=== PATIENT | male | born 1945 | race Caucasian/White ===

== ENCOUNTER 2017-12-13 19:50 | Inpatient (IN) ==
[2017-12-13] MEDS ORDERED: cefTRIAXone 1,000 MG in Water for inj. (sterile) 20 ML 10 ML IVP ONE (20:06)
[2017-12-13] MEDS ORDERED: Azithromycin 500 MG in D5% in Water 250 ML IVPB ONE (20:06)
--- NOTE | 2017-12-13 20:12 | Emergency Department Note ---
Disposition Clinical Impression: Hypokalemia Pneumonia Qualifiers: Pneumonia type: due to unspecified organism Laterality: right Lung location: lower lobe of lung Qualified Code(s): J18.1 - Lobar pneumonia, unspecified organism Disposition: Home, Self-Care Condition: Fair Forms: ED Satisfaction Letter Time of Disposition: 22:42 SOB HPI - General Chief Complaint: ED Extremity Injury, Upper Stated Complaint: left shoulder and arm pain Time Seen by Provider: 12/13/17 19:59 Source: patient, EMS Mode of arrival: EMS Limitations: physical limitation Nursing Notes Reviewed: Yes Vital Signs Reviewed: Yes - History of Present Illness Pt Subjective Complaint: shortness of breath Onset (ago): day(s) (4 days) Context: other (Says been feeling weak for the past 4-5 days. Weakness associated be her he is having hard time getting out of a chair and moving around. He said shortness of breath and cough during that time. Cough is productive of white sputum.) Severity: severe Consistency/Duration: gradually worsening Improves with: nothing Worsens with: exertion, coughing Known history of: COPD Associated symptoms: Reports: fever, sputum production Treatment prior to arrival: oxygen Cough present: Yes Cough Description: Productive Cough Frequency: Intermittent Sputum production: Yes Sputum Amount: Large Sputum Color: White - Related Data Home oxygen amount: 2 liters Home Medications Medication Instructions Recorded Confirmed Albuterol Sulfate [Ventolin Hfa] 1 IH QID 08/26/17 Aspirin [Lo-Dose Aspirin EC] 81 mg PO DAILY 08/26/17 12/13/17 Atorvastatin Calcium [Lipitor] 40 mg PO DAILY 08/26/17 12/13/17 Diclofenac Sodium [Voltaren] 1 PO BID 08/26/17 Fluticasone Propionate [Flovent 50 mcg IH DAILY 08/26/17 12/13/17 Diskus] Gabapentin [Neurontin] 400 mg PO TID 08/26/17 12/13/17 Lisinopril [Zestril] 10 mg PO DAILY 08/26/17 12/13/17 Magnesium Oxide [Magnesium] 400 mg PO BID 08/26/17 12/13/17 Melatonin 10 mg PO DAILY 08/26/17 12/13/17 Meloxicam [Meloxicam] 1 tab PO DAILY 08/26/17 12/13/17 Metoprolol Tartrate [Metoprolol 25 mg PO BID 08/26/17 12/13/17 Tartrate] Potassium Chloride 10 meq PO DAILY 08/26/17 12/13/17 Quetiapine Fumarate [SEROquel] 25 mg PO HS 08/26/17 12/13/17 Previous Rx's Medication Instructions Recorded HYDROcodone/Acet 5/325 mg [[place] 1 tab PO Q6H #14 tab 11/19/16 5-325 mg] Allergies Allergy/AdvReac Type Severity Reaction Status Date / Time No Known Allergies Allergy Verified 08/26/17 15:28 All systems ED: reviewed and negative except as stated. Constitutional: Reports: fever, chills ENT ED: Denies: ear pain, throat pain, congestion Cardiovascular: Reports: dyspnea on exertion. Denies: chest pain, palpitations Respiratory: Reports: cough, dyspnea, wheezes, sputum production Gastrointestinal: Reports: abdominal pain (But this is chronic and no different than usual). Denies: nausea, vomiting, diarrhea Genitourinary: Denies: urgency, dysuria Musculoskeletal: Denies: back pain Integumentary: Denies: rash Neurological: Reports: weakness (Generalized weakness). Denies: headache Endocrine: Reports: fatigue Past Medical History - Past Medical History Attestation: Yes The following information was validated with the patient. Source: patient, old records reviewed, nursing notes reviewed Medical history: Reports: arthritis, COPD, hypertension Surgical history: Reports: no surgical history Psychiatric history: Reports: anxiety - Social History Smoking Status: Former smoker Smokeless Tobacco Status: Yes Alcohol use: Reports: heavy, recent Drug use: Reports: marijuana Physical Exam - General Limitations: physical limitation General appearance: alert, in no apparent distress - Head Head exam: atraumatic, normocephalic, normal inspection - Eye Eye exam: Present: normal appearance, PERRL, EOMI. Absent: scleral icterus, conjunctival injection - ENT ENT exam: normal exam, normal oropharynx, mucous membranes dry, normal external ear exam - Neck Neck exam: Present: normal inspection, full ROM, trachea midline. Absent: meningismus, lymphadenopathy - Chest Chest inspection: Present: normal inspection, symmetric chest wall rise. Absent : tenderness - Respiratory Respiratory exam: Present: other (Course breath sounds are heard on the right lung. Left lung sounds clear). Absent: respiratory distress - Cardiovascular Cardiovascular exam: Present: normal rhythm, tachycardia, normal heart sounds - Abdominal Exam Abdominal exam: Present: soft, Non-Tender (When I palpated with my hand lightly the patient called out in discomfort and asked me not to press so hard. I then went ahead and listen with my stethoscope while doing so pressed very hard with my stethoscope head and the patient did not complain of discomfort or flinch in any way. Belly was very soft), normal bowel sounds - Extremities Exam Extremities exam: Present: normal inspection. Absent: pedal edema - Neurological Exam Neurological exam: Present: alert, oriented X3. Absent: motor sensory deficit ( No focal motor or sensory deficit. Patient does have generalized weakness) - Psychiatric Psychiatric exam: Present: normal affect, normal mood - Skin Skin exam: Present: warm, dry. Absent: rash Course Course Narrative: Patient has generalized weakness severe enough it is really not able to get up and walk around at home. He is coughing and producing white sputum and he is short of breath. On auscultation there is a lot of noise in the right lung. He has a fever as well. I am concerned about pneumonia. I initiated a sepsis workup. I ordered blood cultures and we will initiate a long source antibiotics. Disposition will be based on diagnostic results and reevaluation. - Reevaluation(s) Reevaluation #1: I reevaluated the patient several times but does not. She has to dictate. Patient's x-ray shows right-sided pneumonia. That is consistent with the lung exam findings combined with his general complaint and fever. I am also learning that the patient really has some drug use issues. EMS took a picture of a bunch of drugs a lobito had on his dresser at home. That may be contributing to his weakness and somnolence as well. He is already gotten the pneumonia antibiotics. Labs do not look that bad. Cardiac spoke with the hospitalist to get him admitted to the hospital for treatment of pneumonia. Time: 22:40 - Consultations Consultation #1: Dr. Kulkarni, hospitalist - I discussed case with the hospitalist and he is accepted the patient for admission. Time: 22:35 Vital Signs Temperature 100.1 F H 12/13/17 19:57 Pulse Rate 112 12/13/17 19:57 Respiratory Rate 18 12/13/17 19:57 Blood Pressure 140/94 12/13/17 19:57 O2 Sat by Pulse Oximetry 95 12/13/17 19:57 Temperature 99.0 F 12/13/17 21:57 Pulse Rate 83 12/13/17 22:32 Respiratory Rate 16 12/13/17 22:32 Blood Pressure 126/89 12/13/17 22:32 O2 Sat by Pulse Oximetry 97 12/13/17 22:32 Oxygen Delivery Oxygen Delivery Nasal Cannula Shortness of Breath/Dyspnea - Medical Records Medical records reviewed: Yes I reviewed the patient's medical records. - Lab Data Lab results reviewed: Yes I reviewed the patient's lab results. Result diagrams: 12/13/17 20:22 12/13/17 20:22 Lab Results 12/13/17 12/13/17 12/13/17 Range/Units 20:22 20:22 20:22 WBC 9.5 (4.3-11.1) K/mcL RBC 4.25 (4.19-5.50) M/mcL Hgb 12.7 L (12.9-16.9) g/dL Hct 37.1 L (37.5-50.1) % MCV 87.3 (83.0-100.0) fL MCH 29.9 (28.0-33.3) pg MCHC 34.2 (31.6-35.5) g/dL RDW 13.6 (11.5-14.5) % Plt Count 124 L (140-400) K/mcL MPV 9.9 (9.4-12.4) fL Immature Gran % 0.2 (0-4) % Seg Neutrophils % 79.6 % Lymphocytes % 7.9 % Monocytes % 12.1 % Eosinophils % 0.0 % Basophils % 0.2 % Neutrophils # 7.5 (1.6-8.9) K/mcL Lymphocytes # 0.8 (0.6-4.6) K/mcL Monocytes # 1.1 (0.0-1.3) K/mcL Eosinophils # 0.0 (0.0-0.6) K/mcL Basophils # 0.0 (0.0-0.2) K/mcL PT 15.3 H (9.4-12.1) Seconds INR 1.4 APTT 39.1 H (26.0-36.0) Seconds Sample Site ABG pH (7.32-7.45) pH Units ABG pCO2 (35-45) mmHg ABG pO2 (85-104) mmHg ABG HCO3 (21-27) mEq/L ABG Total CO2 (20-26) mEq/L ABG O2 Saturation (95-98) % ABG Base Excess (-2 to 3) mEq/L Jerry Test O2 Delivery Device Inspired O2 (1-15=lpm qy95-232=%) Sodium 134 L (136-145) mEq/L Potassium 3.0 L (3.5-5.1) mEq/L Chloride 101 (98-107) mEq/L Carbon Dioxide 24 (23-29) mEq/L BUN 13 (8-23) mg/dL Creatinine 0.67 L (0.70-1.30) mg/dL Est GFR ( Amer) > 60 (> 60) Est GFR (Non-Af Amer) > 60 (> 60) BUN/Creatinine Ratio 19 (6-26) Glucose 140 H (70-105) mg/dL Calculated Osmolality 280 (280-300) Lactic Acid (0.5-2.2) mmol/L Calcium 8.8 (8.6-10.3) mg/dL Phosphorus 2.4 L (2.7-4.5) mg/dL Magnesium 1.4 L (1.6-2.6) mg/dL Total Bilirubin 1.3 H (0.3-1.0) mg/dL Direct Bilirubin 0.3 H (0.0-0.2) mg/dL Indirect Bilirubin 1.0 (0.0-1.2) mg/dL AST 17 (13-39) Units/L ALT 16 (7-52) Units/L Alkaline Phosphatase 77 (34-104) Units/L Troponin I < 0.03 (< 0.04) ng/mL Serum Total Protein 7.3 (6.4-8.9) g/dL Albumin 3.5 (3.5-5.7) g/dL Globulin 3.8 H (2.4-3.5) g/dL Albumin/Globulin Ratio 0.9 L (1.1-2.2) Urine Color (Yellow) Urine Clarity (Clear) Urine pH (5.0-8.0) pH Units Ur Specific [place] (1.010-1.025) Urine Protein (Neg-Trace) mg/dL Urine Glucose (UA) (Normal) mg/dL Urine Ketones (Negative) mg/dL Urine Blood (Negative) Urine Nitrite (Negative) Urine Bilirubin (Negative) Urine Urobilinogen (Normal) mg/dL Ur Leukocyte Esterase (Negative) Ur Culture Indicated? (NO) Ur Drug Screen Interp 12/13/17 12/13/17 12/13/17 Range/Units 20:22 20:31 22:30 WBC (4.3-11.1) K/mcL RBC (4.19-5.50) M/mcL Hgb (12.9-16.9) g/dL Hct (37.5-50.1) % MCV (83.0-100.0) fL MCH (28.0-33.3) pg MCHC (31.6-35.5) g/dL RDW (11.5-14.5) % Plt Count (140-400) K/mcL MPV (9.4-12.4) fL Immature Gran % (0-4) % Seg Neutrophils % % Lymphocytes % % Monocytes % % Eosinophils % % Basophils % % Neutrophils # (1.6-8.9) K/mcL Lymphocytes # (0.6-4.6) K/mcL Monocytes # (0.0-1.3) K/mcL Eosinophils # (0.0-0.6) K/mcL Basophils # (0.0-0.2) K/mcL PT (9.4-12.1) Seconds INR APTT (26.0-36.0) Seconds Sample Site R Brach ABG pH 7.42 (7.32-7.45) pH Units ABG pCO2 38 (35-45) mmHg ABG pO2 90 (85-104) mmHg ABG HCO3 24 (21-27) mEq/L ABG Total CO2 26 (20-26) mEq/L ABG O2 Saturation 97 (95-98) % ABG Base Excess 0 (-2 to 3) mEq/L Jerry Test N/A O2 Delivery Device Cannula Inspired O2 2.0 (1-15=lpm [id number]=%) Sodium (136-145) mEq/L Potassium (3.5-5.1) mEq/L Chloride (98-107) mEq/L Carbon Dioxide (23-29) mEq/L BUN (8-23) mg/dL Creatinine (0.70-1.30) mg/dL Est GFR ( Amer) (> 60) Est GFR (Non-Af Amer) (> 60) BUN/Creatinine Ratio (6-26) Glucose (70-105) mg/dL Calculated Osmolality (280-300) Lactic Acid 1.2 (0.5-2.2) mmol/L Calcium (8.6-10.3) mg/dL Phosphorus (2.7-4.5) mg/dL Magnesium (1.6-2.6) mg/dL Total Bilirubin (0.3-1.0) mg/dL Direct Bilirubin (0.0-0.2) mg/dL Indirect Bilirubin (0.0-1.2) mg/dL AST (13-39) Units/L ALT (7-52) Units/L Alkaline Phosphatase (34-104) Units/L Troponin I (< 0.04) ng/mL Serum Total Protein (6.4-8.9) g/dL Albumin (3.5-5.7) g/dL Globulin (2.4-3.5) g/dL Albumin/Globulin Ratio (1.1-2.2) Urine Color Dark Yellow (Yellow) Urine Clarity Clear (Clear) Urine pH 6.0 (5.0-8.0) pH Units Ur Specific [place] 1.020 (1.010-1.025) Urine Protein Negative (Neg-Trace) mg/dL Urine Glucose (UA) 100 H (Normal) mg/dL Urine Ketones Negative (Negative) mg/dL Urine Blood Negative (Negative) Urine Nitrite Negative (Negative) Urine Bilirubin Negative (Negative) Urine Urobilinogen Normal (Normal) mg/dL Ur Leukocyte Esterase Negative (Negative) Ur Culture Indicated? NO (NO) Ur Drug Screen Interp 12/13/17 Range/Units 22:35 WBC (4.3-11.1) K/mcL RBC (4.19-5.50) M/mcL Hgb (12.9-16.9) g/dL Hct (37.5-50.1) % MCV (83.0-100.0) fL MCH (28.0-33.3) pg MCHC (31.6-35.5) g/dL RDW (11.5-14.5) % Plt Count (140-400) K/mcL MPV (9.4-12.4) fL Immature Gran % (0-4) % Seg Neutrophils % % Lymphocytes % % Monocytes % % Eosinophils % % Basophils % % Neutrophils # (1.6-8.9) K/mcL Lymphocytes # (0.6-4.6) K/mcL Monocytes # (0.0-1.3) K/mcL Eosinophils # (0.0-0.6) K/mcL Basophils # (0.0-0.2) K/mcL PT (9.4-12.1) Seconds INR APTT (26.0-36.0) Seconds Sample Site ABG pH (7.32-7.45) pH Units ABG pCO2 (35-45) mmHg ABG pO2 (85-104) mmHg ABG HCO3 (21-27) mEq/L ABG Total CO2 (20-26) mEq/L ABG O2 Saturation (95-98) % ABG Base Excess (-2 to 3) mEq/L Jerry Test O2 Delivery Device Inspired O2 (1-15=lpm cl50-104=%) Sodium (136-145) mEq/L Potassium (3.5-5.1) mEq/L Chloride (98-107) mEq/L Carbon Dioxide (23-29) mEq/L BUN (8-23) mg/dL Creatinine (0.70-1.30) mg/dL Est GFR ( Amer) (> 60) Est GFR (Non-Af Amer) (> 60) BUN/Creatinine Ratio (6-26) Glucose (70-105) mg/dL Calculated Osmolality (280-300) Lactic Acid (0.5-2.2) mmol/L Calcium (8.6-10.3) mg/dL Phosphorus (2.7-4.5) mg/dL Magnesium (1.6-2.6) mg/dL Total Bilirubin (0.3-1.0) mg/dL Direct Bilirubin (0.0-0.2) mg/dL Indirect Bilirubin (0.0-1.2) mg/dL AST (13-39) Units/L ALT (7-52) Units/L Alkaline Phosphatase (34-104) Units/L Troponin I (< 0.04) ng/mL Serum Total Protein (6.4-8.9) g/dL Albumin (3.5-5.7) g/dL Globulin (2.4-3.5) g/dL Albumin/Globulin Ratio (1.1-2.2) Urine Color (Yellow) Urine Clarity (Clear) Urine pH (5.0-8.0) pH Units Ur Specific [place] (1.010-1.025) Urine Protein (Neg-Trace) mg/dL Urine Glucose (UA) (Normal) mg/dL Urine Ketones (Negative) mg/dL Urine Blood (Negative) Urine Nitrite (Negative) Urine Bilirubin (Negative) Urine Urobilinogen (Normal) mg/dL Ur Leukocyte Esterase (Negative) Ur Culture Indicated? (NO) Ur Drug Screen Interp See Below - Radiology Data Radiology results reviewed: Yes I reviewed the patient's radiology results. - EKG Data EKG attestation: Yes I reviewed and interpreted this EKG. EKG results narrative: Twelve-lead EKG #1 performed at 1953 and interpreted by ED physician shows sinus tachycardia at a rate of 116. Borderline left axis deviation. Good hour progression across precordium. Nonspecific T-wave changes but no obvious acute ischemic changes. Intervals are within normal limits. Twelve-lead EKG #2 performed at 20 1:42 PM and interpreted by ED physician as showing sinus rhythm at a rate of 91. Normal axis. Good hour progression across cordon no acute ischemic changes. Also within normal limits.
[2017-12-13] MEDS ORDERED: Ipratropium/Albuterol Neb 3 ML IH ONE (20:14)
[2017-12-13] MEDS ORDERED: 0.9 % Sodium Chloride 2,000 ML ONE (20:19)
[2017-12-13] MEDS: 0.9 % Sodium Chloride 1,000 ML IVC SCH ×2 (20:21→20:36)
[2017-12-13 20:29] LABS: Basophils % 0.2 %; Hematocrit 37.1 % (37.5-50.1); Hemoglobin 12.7 g/dL (12.9-16.9); Immature Granulocytes % 0.2 % (0-4); Lymphocytes # 0.8 K/mcL (0.6-4.6); Lymphocytes % 7.9 %; Mean Corpuscular HGB Conc 34.2 g/dL (31.6-35.5); Mean Corpuscular Hemoglobin 29.9 pg (28.0-33.3); Mean Corpuscular Volume 87.3 fL (83.0-100.0); Mean Platelet Volume 9.9 fL (9.4-12.4); Monocytes # 1.1 K/mcL (0.0-1.3); Monocytes % 12.1 %; Neutrophils # 7.5 K/mcL (1.6-8.9); Platelet Count 124 K/mcL (140-400); Red Blood Count 4.25 M/mcL (4.19-5.50); Red Cell Distribution Width 13.6 % (11.5-14.5); Segmented Neutrophils % 79.6 %
[2017-12-13 20:34] LABS: ABG Base Excess 0 mEq/L (-2 to 3); ABG HCO3 24 mEq/L (21-27); ABG Oxygen Saturation 97 % (95-98); ABG PCO2 38 mmHg (35-45); ABG PH 7.42 pH Units (7.32-7.45); ABG PO2 90 mmHg (85-104); ABG TCO2 26 mEq/L (20-26)
[2017-12-13 20:38] LABS: INR 1.4; Prothrombin Time 15.3 Seconds (9.4-12.1)
[2017-12-13 20:41] LABS: Activated Partial Thrombo Time 39.1 Seconds (26.0-36.0)
[2017-12-13 20:47] LABS: Alanine Aminotransferase 16 Units/L (7-52); Albumin 3.5 g/dL (3.5-5.7); Albumin/Globulin Ratio 0.9 (1.1-2.2); Alkaline Phosphatase 77 Units/L (34-104); Aspartate Amino Transferase 17 Units/L (13-39); BUN/Creatinine Ratio 19 (6-26); Bilirubin,Direct 0.3 mg/dL (0.0-0.2); Bilirubin,Total 1.3 mg/dL (0.3-1.0); Blood Urea Nitrogen 13 mg/dL (8-23); Calcium 8.8 mg/dL (8.6-10.3); Carbon Dioxide 24 mEq/L (23-29); Chloride 101 mEq/L (98-107); Globulin 3.8 g/dL (2.4-3.5); Glucose 140 mg/dL (70-105); Magnesium 1.4 mg/dL (1.6-2.6); Osmolality,Calculated 280 (280-300); Phosphorous 2.4 mg/dL (2.7-4.5); Sodium 134 mEq/L (136-145); Total Protein 7.3 g/dL (6.4-8.9); eGFR For Non-African Americans > 60 (> 60)
[2017-12-13 20:55] LABS: Troponin I < 0.03 ng/mL (< 0.04)
[2017-12-13 22:38] LABS: Bilirubin,Urine Negative (Negative); Blood,Urine Negative (Negative); Clarity,Urine Clear (Clear); Color,Urine Dark Yellow (Yellow); Glucose,Urine (UA) 100 mg/dL (Normal); Ketones,Urine Negative (Negative); Leukocyte Esterase,Urine Negative (Negative); Nitrite,Urine Negative (Negative); Protein,Urine Negative (Neg-Trace); Urobilinogen,Urine Normal (Normal)
[2017-12-13] MEDS ORDERED: Potassium Chloride Elixir 20 MEQ/15 ML UDC PO ONE (22:43)
[2017-12-13 22:52] LABS: Amphetamine Screen,Urine Negative ng/mL (Cutoff=1000); Barbiturate Screen,Urine Negative ng/mL (Cutoff=200); Benzodiazepines Screen,Urine Negative ng/mL (Cutoff=200); Cannabinoid Screen,Urine Negative ng/mL (Cutoff = 50); Cocaine Screen,Urine Negative ng/mL (Cutoff= 300); Opiate Screen,Urine Negative ng/mL (Cutoff=300); Phencyclidine Screen,Urine Negative ng/mL (Cutoff=25)
[2017-12-13] MEDS ORDERED: Azithromycin 500 MG in D5% in Water 250 ML IVPB SCH (23:35)
[2017-12-13] MEDS ORDERED: Naloxone 0.4 MG/ML INJ IVP PRN (23:35)
[2017-12-14] MEDS ORDERED: amLODIPine 5 MG TABLET PO ONE (00:04)
[2017-12-14] MEDS: 0.9 % Sodium Chloride 1,000 ML IVC SCH ×2 (00:33→08:05)
[2017-12-14] MEDS: Ipratropium/Albuterol Neb 3 ML IH SCH ×7 (01:10→23:15)
[2017-12-14] MEDS: traMADol 50 MG TABLET PO PRN ×3 (08:06→20:16)
[2017-12-14] MEDS: Aspirin Enteric Coated 81 MG Tablet PO SCH (08:06)
--- NOTE | 2017-12-14 11:48 | Internal Med History&Physical ---
Date of Encounter: 12/14/17 Time of Encounter: 11:10 Assessment and Plan (1) Pneumonia Current visit: Yes Status: Acute He has been started on Rocephin and Zithromax. Will add lactobacillus. Qualifiers: Pneumonia type: due to unspecified organism Laterality: right Lung location: lower lobe of lung Qualified Code(s): J18.1 - Lobar pneumonia, unspecified organism (2) Left arm pain Current visit: Yes Status: Acute Check uric acid level and order CT of arm. (3) Anemia Current visit: Yes Status: Acute Hemoglobin normal 07/17/2017 at 15.1. Suspect due at least in part to NSAID use. Order anemia testing in a.m. and hold NSAIDs for now. Qualifiers: Anemia type: unspecified type Qualified Code(s): D64.9 - Anemia, unspecified (4) Urinary retention Current visit: Yes Status: Acute Urinary retention last evening required Girard catheter insertion for decompression. Start Flomax and Proscar. (5) Low blood magnesium level Current visit: Yes Status: Acute Suspect secondary to vomiting and diarrhea. Order replacement magnesium and monitor labs. (6) Weight loss Current visit: Yes Status: Acute He reports 50 pound weight loss unintentional over the last year. Order CT of abdomen/pelvis and chest. (7) COPD (chronic obstructive pulmonary disease) Current visit: Yes Status: Chronic Treatment of pneumonia as per above. Continue oxygen and order nebulizer treatments. Qualifiers: COPD type: unspecified COPD Qualified Code(s): J44.9 - Chronic obstructive pulmonary disease, unspecified (8) Hypertension Current visit: Yes Status: Chronic Continue metoprolol and lisinopril. Qualifiers: Hypertension type: essential hypertension Qualified Code(s): I10 - Essential (primary) hypertension (9) Hypophosphatemia Current visit: Yes Status: Acute Order phosphorus supplementation and recheck labs. (10) Hypokalemia Current visit: Yes Status: Acute Order potassium supplementation and monitor labs. Internal Medicine - H&P: HPI Chief complaint: Diarrhea, left arm pain, dyspnea Admitted From: Emergency Dept Plans for Post Hospital Care: Home History of present illness: Mr. Eason is a 72 year old male who came to emergency room stating he had significant pain in his right arm with diarrhea and vomiting for the past week. He did not take medication other than routine meds for the arm pain. He reports there was intermittent blood in the vomiting and diarrhea. He was evaluated in emergency room and felt to have pneumonia. He was admitted to [facility] floor for ongoing care needs. Respiratory history is significant for having smoked from age [age] up to 3 packs per day. He reports PFTs 2015 showed COPD. He wears oxygen 24/7. GI history is negative for disorders of liver gallbladder or exocrine pancreas. He has had intermittent abdominal discomfort in the past week. He reports he has not vomited since coming through emergency room. Past Med Surg Social Fam HX - Past Medical History Medical history: arthritis, COPD, CVA, hypertension, myocardial infarction Additional medical history: alcoholism Psychiatric history: anxiety - Past Surgical History Surgical History: no surgical history - Social History Smoking Status: Former smoker Smokeless Tobacco Status: Yes Alcohol use: occasionally Drug use: marijuana Internal Medicine - H&P: Meds HYDROcodone/Acet 5/325 mg [[place] 5-325 mg] 1 tab PO Q6H #14 tab 11/19/16 [Rx] Albuterol Sulfate [Ventolin Hfa] 1 IH QID 08/26/17 [History] Aspirin [Lo-Dose Aspirin EC] 81 mg PO DAILY 08/26/17 [History] Atorvastatin Calcium [Lipitor] 40 mg PO DAILY 08/26/17 [History] Diclofenac Sodium [Voltaren] 1 PO BID 08/26/17 [History] Fluticasone Propionate [Flovent Diskus] 50 mcg IH DAILY 08/26/17 [History] Gabapentin [Neurontin] 400 mg PO TID 08/26/17 [History] Lisinopril [Zestril] 10 mg PO DAILY 08/26/17 [History] Magnesium Oxide [Magnesium] 400 mg PO BID 08/26/17 [History] Melatonin 10 mg PO DAILY 08/26/17 [History] Meloxicam [Meloxicam] 1 tab PO DAILY 08/26/17 [History] Metoprolol Tartrate [Metoprolol Tartrate] 25 mg PO BID 08/26/17 [History] Potassium Chloride 10 meq PO DAILY 08/26/17 [History] Quetiapine Fumarate [SEROquel] 25 mg PO HS 08/26/17 [History] 3 Allergy/AdvReac Type Severity Reaction Status Date / Time No Known Allergies Allergy Verified 05/20/18 15:28 All Systems PM: A 10-system review of systems was performed and is negative for pertinent findings except as documented above in the HPI. Review of systems: Gen.: He states his weight has decreased from 190 pounds one year ago to present weight of approximately 140 pounds, unintentional Cardiovascular: He has history of hypertension. He claims [place] approximately 2012. He denies heart failure DVT or pulmonary embolus. He has dyspnea on exertion. Respiratory: As per history of present illness GI: As per history of present illness : He denies hematuria dysuria or kidney stones. He had urinary retention last evening and required Girard catheter insertion. Neurologic: He claims he had 2 CVAs approximately 8 months ago leaving him with left facial pain. He states he has had multiple falls at home over the past year. He denies seizures. Endocrine: He denies diabetes or thyroid disease. He is uncertain if he has hyperlipidemia. Hematology/oncology: He denies blood disorders cancers or anemia Psychiatric: He denies anxiety depression or other mental health issues. [place] skeletal: He has had right arm pain without injury for the last week as per history of present illness. He has DJD and chronic low back pain. He has no history of gout or other bone joint or muscle disorders. - Constitutional Vitals: Temp Pulse Resp BP Pulse Ox 99.5 F 66 17 154/92 97 12/14/17 11:11 12/14/17 11:11 12/14/17 11:11 12/14/17 11:11 12/14/17 11:11 Exam: Gen.: He is a well-developed well-nourished male lying in bed who appears in no severe distress at rest. HEENT: Head is atraumatic and normocephalic. Eyes: EOMI. There is no scleral icterus. Mouth: Mucosa is moist. Neck: Supple and nontender. There is no thyromegaly or adenopathy noted. Heart: Regular without murmurs gallops or ectopics Lungs: No wheezes or crackles are heard. Abdomen: Bowel sounds are present. The abdomen is tender to palpation. No masses or guarding are noted. Extremities: He has severe pain on any movement of the left arm. There appears to be possible effusion of the left shoulder. No visible erythema is noted. The right arm is unremarkable. He is wearing SCDs. Dorsalis pedis and posterior tibial pulses are trace to 1+ palpable bilaterally. Neurologic: Mental status: He is talkative and a good historian. Cranial nerves : Smile is symmetric. Forehead wrinkles bilaterally. Tongue protrudes midline. EOMI. Motor: He moves his right arm well. He does not move his left arm because of severe pain. Cerebellar: Finger to nose is intact bilaterally. Skin: Warm and dry Internal Med - H&P Results - Labs CBC & Chem 7: 12/13/17 20:22 12/13/17 20:22 - Impressions ITS Impressions Forearm X-Ray 12/14/17 00:11 IMPRESSION: 1. No acute fracture or malalignment. 2. Foreign body or dystrophic calcification in the antecubital fossa. D/ / Mendoza Larson MD / Mendoza Larson MD Interpreting Provider: Mendoza Larson MD Humerus X-Ray 12/14/17 00:11 IMPRESSION: 1. No acute fracture or malalignment. 2. Foreign body or dystrophic calcification in the antecubital fossa. D/ / Mendoza Larson MD / Mendoza Larson MD Interpreting Provider: Mendoza Larson MD - VTE Documentation of Mechanical Device: Intermittent pneumatic compression device
[2017-12-14] MEDS: Finasteride 5 MG TABLET PO SCH (13:45)
[2017-12-14] MEDS: 0.9 % Sodium Chloride w KCl 20 MEQ/1,000 ML MLS IVC SCH (13:46)
[2017-12-14] MEDS ORDERED: *HR* OxyCODONE/APAP 5/325 TABLET PO ONE (15:13)
[2017-12-14] MEDS: Lactobacillus 1 EACH CAP.SPRINK PO SCH (20:09)
[2017-12-14] MEDS: Magnesium Oxide 400 MG TABLET PO SCH (20:09)
[2017-12-14] MEDS ORDERED: cefTRIAXone 1,000 MG in Water for inj. (sterile) 20 ML 20 ML IVPB SCH (21:00)
[2017-12-14] MEDS ORDERED: Azithromycin 500 MG in D5% in Water 250 ML IVPB SCH (22:00)
[2017-12-15] MEDS: Ipratropium/Albuterol Neb 3 ML IH SCH ×2 (03:30→08:33)
[2017-12-15] MEDS: 0.9 % Sodium Chloride w KCl 20 MEQ/1,000 ML MLS IVC SCH (05:24)
[2017-12-15 05:30] LABS: Basophils % 0.3 %; Eosinophils # 0.1 K/mcL (0.0-0.6); Eosinophils % 1.6 %; Hematocrit 33.4 % (37.5-50.1); Immature Granulocytes % 0.3 % (0-4); Lymphocytes # 1.2 K/mcL (0.6-4.6); Lymphocytes % 18.8 %; Mean Corpuscular HGB Conc 32.9 g/dL (31.6-35.5); Mean Corpuscular Hemoglobin 29.9 pg (28.0-33.3); Mean Corpuscular Volume 90.8 fL (83.0-100.0); Mean Platelet Volume 10.4 fL (9.4-12.4); Monocytes # 0.6 K/mcL (0.0-1.3); Neutrophils # 4.3 K/mcL (1.6-8.9); Platelet Count 104 K/mcL (140-400); Red Blood Count 3.68 M/mcL (4.19-5.50); Red Cell Distribution Width 13.6 % (11.5-14.5)
[2017-12-15 05:53] LABS: BUN/Creatinine Ratio 19 (6-26); Blood Urea Nitrogen 11 mg/dL (8-23); Calcium 8.5 mg/dL (8.6-10.3); Carbon Dioxide 23 mEq/L (23-29); Chloride 104 mEq/L (98-107); Glucose 110 mg/dL (70-105); Osmolality,Calculated 276 (280-300); Phosphorous 2.8 mg/dL (2.7-4.5); Potassium 3.8 mEq/L (3.5-5.1); Sodium 133 mEq/L (136-145); eGFR For Non-African Americans > 60 (> 60)
[2017-12-15] MEDS ORDERED: *HR* Enoxaparin 40 MG/0.4 ML SYRINGE SQ SCH (06:00)
[2017-12-15 06:28] LABS: Magnesium 1.6 mg/dL (1.6-2.6)
[2017-12-15 06:42] LABS: Thyroid Stimulating Hormone 2.506 mcIU/mL (0.340-5.600)
[2017-12-15 07:00] VITALS: BP 150/99
[2017-12-15] MEDS: Magnesium Oxide 400 MG TABLET PO SCH (08:24)
[2017-12-15] MEDS: Aspirin Enteric Coated 81 MG Tablet PO SCH (08:25)
[2017-12-15] MEDS: Lactobacillus 1 EACH CAP.SPRINK PO SCH (08:25)
[2017-12-15] MEDS: Finasteride 5 MG TABLET PO SCH (08:25)
[2017-12-15 09:13] LABS: % Iron Saturation 5 % (20-55); Iron 12 mcg/dL (65-175); Transferrin 177 mg/dL (203-362)
[2017-12-15 09:30] LABS: Ferritin 265 ng/mL (20-250)
[2017-12-15 09:36] LABS: Folate 6.6 ng/mL (3.0-16.0)
--- NOTE | 2017-12-15 10:24 | Discharge Summary ---
- NOTES TO OUTPATIENT PROVIDER Notes to Outpatient Provider: Pt with 5.4 cm abdominal aortic aneurysm. Vascular surgery consult as an outpatient recommended. Further evalaution of reported unintentional weight loss warranted as well. Orders not resulted at time of discharge: Pending orders 12/15/17 10:06 Amylase Stat Lipase Stat Date of Encounter: 12/15/17 Time of Encounter: 10:21 - Discharge Diagnosis (1) Nausea and vomiting in adult Priority: Primary Status: Acute Comments: Resolved with IV fluids and supportive care. CT abd/pelvis with possible evidence of early pancreatitis. No mass or evidence of cancer noted. Pt symptomatically improved before amylase and lipase could be drawn. Recommend continued supportive care for now. (2) Arthritis of glenohumeral joint Priority: Secondary Status: Chronic Comments: Severe radiocarpal and glenohumeral OA documented by CT scan. Pt was evaluated by Dr. [facility] and underwent corticosteroid injection of L shoulder with significant improvement in pain. Home therapy recommended to patient. [facility] f/u as outpatient is scheduled for December 28 at 2: [address] Santiago. (3) Aneurysm of infrarenal abdominal aorta Priority: Secondary Status: Chronic Comments: 5.[address] noted on [address] scan. Beta-issac increased during hospital stay. Recommend improved BP control as outpatient and referral to vascular surgery. Patient is aware of need for improved BP control and vascular surgery consult. He notes that he has PCP f/u in 2 days to further discuss. Smoking cessation/ abstinence as advised. (4) Anemia Priority: Secondary Status: Chronic Comments: Mild. Appears secondary to iron deficiency with hemodilutional worsening while inpatient. No evidence of GI bleed while inpatient. Iron initiated. Recommend monitor for stabilty as outpatient. Endoscopy evaluation as outpatient recommended as well. Qualifiers: Anemia type: iron deficiency Iron deficiency anemia type: chronic blood loss Qualified Code(s): D50.0 - Iron deficiency anemia secondary to blood loss (chronic) (5) Urinary retention Priority: Secondary Status: Acute Comments: Pt treated with pharmacologic regimen and able to urinate after removal of perez. Recommend monitor as outpatient. (6) Weight loss Priority: Secondary Status: Chronic Comments: Further work-up as outpatient as deemed appropriate including colorectal and prostate cancer screening recommended. CT chest, abdomen, and pelvis without evidence for etiology. (7) COPD (chronic obstructive pulmonary disease) Priority: Secondary Status: Chronic Comments: Stable. Continue home regimen including home oxygen. Qualifiers: COPD type: unspecified COPD Qualified Code(s): J44.9 - Chronic obstructive pulmonary disease, unspecified (8) Hypertension Priority: Secondary Status: Chronic Comments: Fair control with somewhat labile readings during hospital stay. Beta-issac increased given AAA and elevated readings. PCP f/u in is place. Pt aware to monitor as outpatient. Qualifiers: Hypertension type: essential hypertension Qualified Code(s): I10 - Essential (primary) hypertension Hospital course: Mr. Eason is a 72 year old male that presented to ED via EMS for severe left arm pain, nausea, vomitting and generalized weakness with reported 50 pound home weight loss without intent. He was treated for presumptive CAP given questionable infiltrate seen in CXR. He underwent CT scan of chest, abd, pelvis and left arm. He was found to have severe L glenohumeral and radiocarpal arthritis and was seen by [facility]. He was administered a steroid injection of left shoulder with considerable improvement in pain. He has bone and joint follow-up arranged. His CT scans were negative for evidence of pneumonia. Antibiotics were discontinued. CT scan did reveal possible early pancreatitis and 5.4 cm AAA. Beta-issac uptitrated to improve BP control and vascular surgery consult as outpatient was recommended. Patient is aware of importance of outpatient evaluation and monitoring. Electrolytes replaced. Iron initiated for iron deficiency anemia. Endoscopy evaluation recommended as outpatient. Perez cather placed for urinary retention. Patient with then initiated on finasteride and tamsulosin. Perez removed and patient able to urinate prior to discharge. Patient improved to baseline and was eager for discharge home. He was ambulatory and tolerating a regular diet at time of discharge. He reports close PCP f/u already scheduled for next week. Discharge discussed with: patient - Time Spent with Patient Total time spent providing and/or coordinating discharge services: Greater than 30 minutes - Discharge Medications Prescriptions: Ferrous Sulfate 325 mg PO BID 30 Days #60 tablet Finasteride [Proscar] 5 mg PO DAILY #30 tablet Metoprolol Tartrate 50 mg PO BID #60 tablet Tamsulosin [Flomax] 0.4 mg PO DAILY #30 capsule Home Medications: HYDROcodone/Acet 5/325 mg [Renovo 5-325 mg] 1 tab PO Q6H #14 tab 11/19/16 [Rx] Albuterol Sulfate [Ventolin Hfa] 1 IH QID 08/26/17 [History] Aspirin [Lo-Dose Aspirin EC] 81 mg PO DAILY 08/26/17 [History] Atorvastatin Calcium [Lipitor] 40 mg PO DAILY 08/26/17 [History] Fluticasone Propionate [Flovent Diskus] 50 mcg IH DAILY 08/26/17 [History] Gabapentin [Neurontin] 400 mg PO TID 08/26/17 [History] Lisinopril [Zestril] 10 mg PO DAILY 08/26/17 [History] Magnesium Oxide [Magnesium] 400 mg PO BID 08/26/17 [History] Melatonin 10 mg PO DAILY 08/26/17 [History] Meloxicam 1 tab PO DAILY 08/26/17 [History] Metoprolol Tartrate 25 mg PO BID 08/26/17 [History] Potassium Chloride 10 meq PO DAILY 08/26/17 [History] Quetiapine Fumarate [Seroquel] 25 mg PO HS 08/26/17 [History] Ferrous Sulfate 325 mg PO BID 30 Days #60 tablet 12/15/17 [Rx] Finasteride [Proscar] 5 mg PO DAILY #30 tablet 12/15/17 [Rx] Metoprolol Tartrate 50 mg PO BID #60 tablet 12/15/17 [Rx] Tamsulosin [Flomax] 0.4 mg PO DAILY #30 capsule 12/15/17 [Rx] Allergies/Adverse Reactions: 3 Allergy/AdvReac Type Severity Reaction Status Date / Time No Known Allergies Allergy Verified 08/26/17 15:28 Date of admission: 12/14/17 11:40 Primary care physician: Jae Morgan DO Consults: [facility], Dr. Yuri Santiago Discharging clinician: Cedrick Decker Anticipated date of discharge: 12/15/17 - Constitutional Vitals: Temp Pulse Resp BP Pulse Ox 98.3 F 58 14 150/99 95 12/15/17 06:59 12/15/17 06:59 12/15/17 08:33 12/15/17 06:59 12/15/17 08:33 Exam: Gen: Lying in bed, NAD HEENT: NC, AT Neck: Trachea midline, no mass Pulm: No respiratory distress, CTAB CV: Normal S1 and S2, RRR Abdomen: Soft, ND, NT Ext: No C/C/E; + pain with abduction > 30 degrees at left shoulder Neuro: No appreciable motor/sensor deficits Skin: Warm and dry, no rash Psych: A&Ox3 - Patient Status Disposition: Home, Self-Care Condition: Fair Functional capacity at discharge: independent ambulation Overall status at discharge: patient is back to baseline - Discharge Instructions Instructions: Peripheral Vascular Disorders (DC), Chronic Obstructive Pulmonary Disease (DC), Chronic Hypertension (DC), Anemia (GEN), Pneumonia (DC) Follow Up With: Jae Morgan DO [Primary Care Provider] - 1 week - Diet and Activity Activity: resume usual activities as tolerated, wear oxygen at all times Diet: advance to your usual diet - VTE Documentation of Mechanical Device: Intermittent pneumatic compression device
[2017-12-15] MEDS: traMADol 50 MG TABLET PO PRN (12:18)
--- NOTE | 2017-12-15 15:52 | Electrocardiograph Report ---
[address] [address] Test Date: 2017-12-13 Pat Name: Chacorta Eason Department: [id number] Room: [facility] Gender: M Desktop Engineer: [id number] : 1945 Requested By: Jose E Roger Order Number: [id number] Reading MD: Sarah Pichardo Measurements Intervals [place] Rate: 116 P: 51 NE: 184 QRS: -21 QRSD: 91 T: 63 QT: 436 QTc: 505 Interpretive Statements SINUS TACHYCARDIA WITH OCCASIONAL SUPRAVENTRICULAR PREMATURE COMPLEXES BORDERLINE LEFT AXIS DEVIATION NONSPECIFIC T-WAVE ABNORMALITY Electronically Signed On 12-15-2017 15:50:47 EDT by Sarah Pichardo
--- NOTE | 2017-12-15 15:58 | Electrocardiograph Report ---
[address] [address] Test Date: 2017-12-13 Pat Name: Chacorta Eason Department: [id number] Room: [facility] Gender: M Chin Strap Maker: [id number] : 1945 Requested By: Jose E Roger Order Number: [id number] Reading MD: Sarah Pichardo Measurements Intervals [place] Rate: 91 P: 36 CA: 212 QRS: -18 QRSD: 98 T: 65 QT: 372 QTc: 421 Interpretive Statements SINUS RHYTHM WITH FIRST DEGREE AV BLOCK First degree AV block NONSPECIFIC T-WAVE ABNORMALITY Electronically Signed On 12-15-2017 15:56:54 EDT by Sarah Pichardo
== END 2017-12-15 12:22 | disposition home or self-care (01) | DRG 282 ==
LOC: EMEROOPIK 19:50 → INPPIK 19:50
PROVIDERS: ADMIT Internal Medicine; ATTEND Internal Medicine